=== PATIENT | male | born 1980 | race Two or more races ===

== ENCOUNTER 2024-11-01 14:10 | Emergency (ER) | payer OTHER ==
[~2024-11-01] VITALS: Ht 182.9 cm; Wt 81.6 kg
[2024-11-01] MEDS ORDERED: MEDROL4 MG PO (15:33)
[2024-11-01] MEDS ORDERED: ORPHENADRINE CITRATE 30 MG/ML AMPUL ONE (15:45)
[2024-11-01] MEDS ORDERED: ORPHENADRINE CITRATE 30 MG/ML AMPUL IM ONE (15:45)
[2024-11-01] MEDS ORDERED: KETOROLAC TROMETHAMINE 60 MG VIAL IM ONE ×2 (15:45)
== END 2024-11-01 17:46 | disposition home or self-care (01) ==
LOC: ER 14:10
DX: M54.50 Low back pain, unspecified (principal)